=== PATIENT | female | born 1985 | race Two or more races ===

== ENCOUNTER 2018-10-30 07:32 | Outpatient (CLI) | payer OTHER | END 2018-10-30 23:59 | disposition home or self-care (01) | LOC: CFH 07:32 | PROVIDERS: ATTEND Specialist | DX: N63.23 Unspecified lump in the left breast, lower outer quadrant (principal) | CPT/HCPCS: 76642; 77066; G0279 ==

== ENCOUNTER 2018-11-01 07:34 | Outpatient (CLI) | payer OTHER | END 2018-11-01 23:59 | disposition home or self-care (01) | LOC: CFH 07:34 | PROVIDERS: ATTEND Specialist | DX: N61.0 Mastitis without abscess (principal) | CPT/HCPCS: 19083; 77065; 87070; 87075; 87077; 87102; 87205; 88305; 88312; 88333; 88341; 88342; J3490 ==